=== PATIENT | female | born 1945 | race Caucasian/White ===

== ENCOUNTER → 2023-12-13 | Outpatient (REF) | payer OTHER | LOC: MAMMO 08:18 | PROVIDERS: ATTEND Internal Medicine | DX: Z12.31 Encounter for screening mammogram for malignant neoplasm of breast (principal); M25.512 Pain in left shoulder | CPT/HCPCS: 77067 ==

== ENCOUNTER → 2024-07-14 | Outpatient (REF) | payer OTHER | LOC: CARD 09:31 | PROVIDERS: ATTEND Internal Medicine | DX: M79.604 Pain in right leg (principal); M79.605 Pain in left leg | CPT/HCPCS: 93925 ==